=== PATIENT | male | born 1950 | race Caucasian/White ===

== ENCOUNTER → 2020-12-29 08:53 | Outpatient (BNVA) | payer MEDICARE, OTHER, SELFPAY | PROVIDERS: PCP Internal Medicine; Referring Provider Internal Medicine; Visit Provider Urology | DX: Z13.89 Encounter for screening for other disorder (principal) | CPT/HCPCS: Q3014 ==

== ENCOUNTER 2021-12-16 08:14 | Outpatient (REF) | payer MEDICARE, OTHER, SELFPAY ==
--- NOTE | ~2021-12-16 | US_ITS ---
EXAMINATION: US RETROPERITONEAL LIMITED (RENAL ONLY) CLINICAL INFORMATION: Calculus of kidney. COMPARISON: CT abdomen and pelvis 05/06/2018. TECHNIQUE: Real-time imaging of the kidneys. FINDINGS: RIGHT KIDNEY: 13.6 x 6.5 x 6.8 cm (SAG x AP x TRV). The kidney is normal in size, contour, and echogenicity. Renal cortical thickness is normal. No calculi or focal parenchymal lesions. No hydronephrosis. LEFT KIDNEY: 14.2 x 5.8 x 6.6 cm (SAG x AP x TRV). The kidney is normal in size, contour, and echogenicity. Renal cortical thickness is normal. There is a 2 x 1.3 x 1.8 cm cyst exophytic to the lower pole with single thin septation. Suggestive of a Bosniak type II cyst. No renal calculi or hydronephrosis. US/US renal BI IMPRESSION: Left renal cyst. No stone seen.
== END 2021-12-16 08:15 | disposition home or self-care (01) ==
LOC: HO.HMGCX 08:14
PROVIDERS: PCP Internal Medicine; Visit Provider Urology
DX: N20.0 Calculus of kidney (principal)
CPT/HCPCS: 76775

== ENCOUNTER → 2022-03-02 08:55 | Outpatient (BNVA) | payer MEDICARE, OTHER, SELFPAY | PROVIDERS: Visit Provider Urology | DX: N20.0 Calculus of kidney (principal) | CPT/HCPCS: Q3014 ==

== ENCOUNTER 2023-02-12 08:38 | Outpatient (REF) | payer MEDICARE, OTHER, SELFPAY ==
--- NOTE | ~2023-02-12 | US_ITS ---
EXAMINATION: US RETROPERITONEAL LIMITED (RENAL ONLY) CLINICAL INFORMATION: Calculus of kidney. COMPARISON: Ultrasound retroperitoneal limited (renal only) 12/16/2021. TECHNIQUE: Real-time imaging of the kidneys. FINDINGS: RIGHT KIDNEY: 13.6 x 6.7 x 5.9 cm (SAG x AP x TRV). The kidney is normal in size, contour, and echogenicity. Renal cortical thickness is normal. No calculi or focal parenchymal lesions. No hydronephrosis. LEFT KIDNEY: 14.1 x 6.5 x 5.6 cm (SAG x AP x TRV). The kidney is normal in size, contour, and echogenicity. Renal cortical thickness is normal. No renal calculi or hydronephrosis. There is a 1.7 cm simple cyst in the lower pole. No imaging follow-up is recommended. US/US renal BI IMPRESSION: No nephrolithiasis or hydronephrosis.
== END 2023-02-12 08:39 | disposition home or self-care (01) ==
LOC: HO.US 08:38
PROVIDERS: PCP Internal Medicine; Visit Provider Urology
DX: N20.0 Calculus of kidney (principal)
CPT/HCPCS: 76775

== ENCOUNTER → 2023-03-02 10:44 | Outpatient (BNVA) | payer MEDICARE, OTHER, SELFPAY | PROVIDERS: PCP Internal Medicine; Visit Provider Urology | DX: N20.0 Calculus of kidney (principal) | CPT/HCPCS: 99212 ==

== ENCOUNTER 2024-02-15 08:49 | Outpatient (REF) | payer MEDICARE, OTHER, SELFPAY ==
--- NOTE | ~2024-02-15 | US_ITS ---
EXAMINATION: US RETROPERITONEAL LIMITED (RENAL ONLY) CLINICAL INFORMATION: Calculus of kidney. COMPARISON: Renal ultrasound 02/12/2023 and 12/16/2021. CT abdomen and pelvis 05/06/2018 TECHNIQUE: Real-time imaging of the kidneys. FINDINGS: RIGHT KIDNEY: 12.2 x 6.5 x 5.0 cm (SAG x AP x TRV). The kidney is normal in size, contour, and echogenicity. Renal cortical thickness is normal. No calculi or focal parenchymal lesions. No hydronephrosis. LEFT KIDNEY: 14.0 x 5.6 x 5.1 cm (SAG x AP x TRV). The kidney is normal in size, contour, and echogenicity. Renal cortical thickness is normal. No renal calculi or hydronephrosis. There are benign, simple cysts, the largest at the lower pole measuring 1.8 cm. These require no imaging follow-up. US/US renal BI IMPRESSION: Unremarkable examination. No renal calculus or hydronephrosis is seen bilaterally. There is no solid lesion.
== END 2024-02-15 08:50 | disposition home or self-care (01) ==
LOC: HO.US 08:49
PROVIDERS: PCP Internal Medicine; Visit Provider Urology
DX: N20.0 Calculus of kidney (principal)
CPT/HCPCS: 76775

== ENCOUNTER 2024-02-29 10:50 | Outpatient (AMB) | payer MEDICARE, OTHER, SELFPAY ==
--- NOTE | 2024-02-29 10:58 | A.OFFVIS_ITS ---
Intake Visit Reasons: 1y follow up Intake Note: Patient is Present for Follow Up Urology Medication: Vitamin b6 Antibiotic Allergies:None Blood Thinners: Warfarin Allergies No Known Allergies Allergy (Verified 02/29/24 11:01) HPI Comments Details: Colton Salazar is a very pleasant male. He is a patient of Dr Reeves. He is seen for the following urologic conditions - nephrolithiasis Has done well on combination vitamin B6 and allopurinol No evidence of further stone formation Will continue with vitamin B6 50 mg One year follow-up Reviewed abdominal hernia that happened from emergent spine surgery Has lost 20 lb Recommend continue weight loss prior to reassessment with Dr. Merida Nephrolithiasis/Urolithiasis: Current imaging no evidence of stones Small cyst remains left kidney Remain on vitamin B6 and allopurinol They are here for further evaluation of nephrolithiasis - discussed results imaging with no stones. Urolithiasis was diagnosed 04/2018 [facility] [place] with left distal ureteric stone. The patient previously had kidney stones whose composition w 05/22 , uric acid 80%. Laboratory investigations include 05/22 , , Base line serum evaluation, Normocalcemia (9.0), Normal PTH, Normal uric acid. 24 Hour urine evaluation 05/22 , Low Urine volume < 2.0 liters, High Sodium (> 100mEq), Low citrate < 400, Low urine pH < 5.5 - low pH with uric acid stones 11/23 , Good Volume > 2.00 L, High Citrate, High oxalate > 30mg, Hypercalciuria (> 200mg), High Sodium (> 100mEq). Prior treatment(s) include 04/22 , left, ureteroscopy 11/23 , medical management, with potassium citrate. Prior imaging includes 04/22 , a CT (computed tomography) scan of the abdomen/pelvis (stone protocol), showing radiodense stone(s), showing ureteral stone(s), on the left, 5-10 mm 05/22 , a renal ultrasound, showing no evidence of stones 11/23 , a renal ultrasound, showing no evidence of stones 11/24 , a renal ultrasound, showing no evidence of stones 2 cm cyst - 12/26 renal ultrasound no evidence of stones, cyst on left kidney 2 cm - 12/27 renal ultrasound minutes of stones, Bosniak 2 - 2 cm cyst left kidney - 12/28 renal ultrasound 2 cm left kidney Bosniak to no evidence of stones - 01/26 renal ultrasound persistent left cyst no evidence of stones Hydronephrosis mild UA today shows 05/22 high specific gravity suggestive of relative dehydration, < 5.5. 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 Review of Systems Const Denies chills and Denies fever(s) Card Reports no additional complaints and Denies syncope Resp Denies cough GI Denies abdominal pain and Denies heartburn Reports as per HPI and Denies change in libido Neuro Denies syncope Psych Denies change in libido Endo Denies change in libido Physical Exam Const General: cooperative, healthy appearing, comfortable and no acute distress Orientation/consciousness: patient oriented x3 HEENT Face and sinus: Yes normal facial exam Mouth: moist mucous membranes Neck Neck: Yes normal visual inspection, Yes full ROM and Yes trachea midline Chest Chest palpation & inspection: normal inspection of the chest Resp Effort & Inspection: normal respiratory effort, able to speak in complete sentences and no respiratory distress GI Inspection: Yes normal to inspection Back/Spine/Pelvis Cervical Spine: normal cervical lordosis Thoracic/Lumbar Spine: thoracic and lumbar spine normal to inspection Skin General skin exam: no rashes or lesions noted Neuro General: patient oriented x3, gait normal, tone normal and moves all extremities Extrem General: Yes normal to inspection and Yes capillary refill normal Assessment & Plan Assessment & Plan (1) Nephrolithiasis: Code(s): N20.0 - Calculus of kidney Category: Medical Plan Twelve month follow-up renal ultrasound Orders: Orders US renal BI 12 Months N20.0 - Calculus of kidney Patient Instructions: Imaging studies, laboratory and physical exam results were discussed and reviewed in detail. No major barriers to patient understanding were identified. An opportunity to ask questions regarding the treatment plan was provided. All questions were answered. The patient expressed understanding and agreement with the above treatment plan. The patient is aware they should contact our office by phone for worsening of their current condition or the appearance of new urologic symptoms. Compliance is encouraged with any medications and followup testing that is ordered. It is a privilege to participate in the urologic care of your patient. If you have any questions or concerns regarding treatment for the above conditions, or other urologic issues, please do not hesitate to contact me. The office telephone contact is [phone]. This note is constructed using voice recognition software. While every effort has been made to ensure accuracy wellness nurse rn errors may have been included. Yours sincerely, Dr Neil Song MD, [facility] - Urology Providers of Expert, Compassionate Care for the Genitourinary System Coding Level of Care Code Est Pt Level 4 (20130) Diagnoses Nephrolithiasis N20.0
== END 2024-02-29 12:19 | disposition home or self-care (01) ==
PROVIDERS: Visit Provider Urology
DX: N20.0 Calculus of kidney (principal)
CPT/HCPCS: 99213

== ENCOUNTER → 2024-02-29 10:50 | Outpatient (BNVA) | payer MEDICARE, OTHER, SELFPAY | PROVIDERS: Visit Provider Urology | DX: N20.0 Calculus of kidney (principal); N28.1 Cyst of kidney, acquired; Z79.899 Other long term (current) drug therapy | CPT/HCPCS: 99212 ==

== ENCOUNTER 2025-02-16 08:49 | Outpatient (REF) | payer MEDICARE, OTHER, SELFPAY ==
--- NOTE | ~2025-02-16 | US_ITS ---
CLINICAL HISTORY: N20.0 - Calculus of kidney US Renal Comparison: 02/15/2024 Findings: Right kidney normal size and echotexture, 13.9 cm length. Left kidney normal size and echotexture, 14 cm length. No hydronephrosis of either kidney. Normal color Doppler 17 mm exophytic left renal cyst is stable to mildly less conspicuous than prior exam and does not require follow-up imaging/further workup. IMPRESSION: No hydronephrosis. This document has been electronically signed by: Ally Ontiveros MD on 02/16/2025 11:07:33
--- OUTSIDE RECORDS SUMMARY | 2025-02-16 09:33 | XMS_ITS | Clinical Summary ---
Author Organization [facility] [address] [facility] Address [address] [place] [address] Phone Care Team Providers Care Store Receiving Clerk Name Role Phone Richard Chu MD Primary Care Provider [phone] Allergies Active Allergy Reactions Criticality Noted Date Comments Pollen Extracts 01/24/2022 Other reaction(s): watery eyes Medications cholecalcifer ol (VITAMIN D-3) 50 mcg (2,000 unit) capsule Take 1 Capsule by mouth daily. Active loteprednol etabonate (Lotemax SM) 0.38 % drops,gel INSTILL 1 DROP INTO BOTH EYES TWICE A DAY DIRECTED Active warfarin (COUMADIN) 5 mg tablet Take 1 Tablet by mouth See Admin Instructions for 360 days. May cause heavy bleeding. Take at same time every day. Do not change dietary habits. Take 1.5 tablets one to three times weekly as directed by anticoagulation clinic and 1 tab all other days. 024 2024 Active multivitamin with minerals (Multiple Vitamin-Casselman als) tablet Take by mouth. Act brayden thiamine 100 mg tablet Take 1 tablet (100 mg total) by mouth 1 (one) time each day. Active allopurinoL (ZYLOPRIM) 300 mg tablet Take 1 tablet (300 mg total) by mouth 1 (one) time each day. 90 tablet 1 Active atorvastatin (LIPITOR) 20 mg tablet Take 1 tablet (20 mg total) by mouth 1 (one) time each day. 90 tablet 1 Active dilTIAZem CD (CARDIZEM CD) 120 mg 24 hr capsule Take 1 capsule (120 mg total) by mouth 1 (one) time each day. 90 capsule 1 024 Active losartan (COZAAR) 50 mg tablet Take 1 tablet (50 mg total) by mouth 1 (one) time each day. 90 tablet 024 Active omeprazole (PriLOSEC) [address] capsule Take 1 capsule (20 mg total) by mouth 1 (one) time each day. 90 capsule 024 Active folic acid (FOLVITE) 1 mg tablet Take 1 tablet (1,000 mcg total) by mouth 1 (one) time each day. 90 tablet 025 Active pyridoxine (B-6) 100 mg tablet Take 1 tablet (100 mg total) by mouth 1 (one) time each day. 90 tablet 1 025 Active metoprolol succinate (TOPROL-XL) 100 mg 24 hr tablet TAKE 1 TABLET BY MOUTH 1 TIME EACH DAY. 90 tablet 025 Active metoprolol succinate (TOPROL-XL) 100 mg 24 hr tablet Take 1 tablet (100 mg total) by mouth 1 (one) time each day. 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 Overview (09/17/2024): left ear s/p surgical excision Incisional hernia without obstruction or gangren e 03/06/2023 Prediabetes 08/05/2021 Systolic congestive heart fa ilure (CMS/HCC V24, CMS/HCC V28) 09/27/2020 Overview (09/17/2024): S/p TTE 09/2020 nuclear stress pending Large bowel obstruction (CMS/HCC V24, CMS/HCC V2 8) 08/09/2020 Overview (09/17/2024): Unclear etiology head exploratory laparotomy with total abdominal hysterectomy and end colostomy 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 L5 radiculopathy. Inconclusive EMG. Follows with physiatry Thyroid nodule 12/27/2017 Overview (09/17/2024): S/p US with large left lobe nodule 2.7 x 1.7 x 2 cm. S/p FNA 01/2018 benign Obesity (BMI 30-39.9) 12/13/2017 Aortic aneurysm ([facility] V24) 06/26/2017 Overview (09/17/2024): Ascending 4.2 cm, stable on CT chest in 12/2017, TTE 04/2019 stable 4.3 cm PVD (peripheral vascular disease) (CMS/[facility] V24) 05/21/2017 GERD (gastroesophageal reflux disease) 7 Vitamin D deficiency 01/24/2017 Diverticulosis 01/24/2017 Overview (09/17/2024): 08/2011 Tubular adenoma 01/24/2017 Overview (09/17/2024): Colonoscopy 08/25/2011, repeat 5 yrs A-fib (CMS/[facility] V24, CMS/HCC V28) 12/04/2016 Overview (09/17/2024): Non valvular on coumadin, follows with cardiology Encounters Date Type Department Care Team Description 02/06/2025 9:00 AM EDT Anticoagulation - Warfarin Visit [facility] [address] [phone] Atrial fibrillation, unspecified type (CMS/HCC V24, CMS/HCC V28) (Primary Dx); USP (current) use of anticoagulants 01/27/2025 10:00 AM EDT Consult Vascular Surgery - [place] [address] [place] [address] Liliana Ruiz PA Asymptomatic varicose veins of both lower extremities 01/09/2025 8:40 AM EST Anticoagulation - Warfarin Visit Coumadin [address] [phone] Atrial fibrillation, unspecified type (CMS/HCC V24, CMS/HCC V28) (Primary Dx); USP (current) use of anticoagulants 01/01/2025 7:45 AM EST Lab Draw [address] Preop examination; Atrial fibrillation, unspecified type (CMS/HCC V24, CMS/HCC V28); Chronic systolic congestive heart failure (CMS/HCC V24, CMS/HCC V28); Hypercholesteremia; Primary hypertension; 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, unspecified laterality; Gastroesophageal reflux disease without esophagitis; Screening for prostate cancer; Longstanding persistent atrial fibrillation (CMS/HCC V24, CMS/HCC V28); Aneurysm of ascending aorta without rupture (CMS/HCC V24); Transaminitis; Asymptomatic varicose veins of both lower extremities; Screening for diabetes mellitus (DM); Mixed hyperlipidemia; Hypercalcemia 12/31/2024 7:30 AM EST Ancillary Procedure [facility] [address] [phone] Cardiomyopathy, unspecified type (CMS/HCC V24, CMS/HCC V28); Atrial fibrillation, persistent (CMS/HCC V24, CMS/HCC V28) 12/30/2024 10:00 AM EST Consult Adult Medicine [address] [phone] Richard Chu MD Preop examination (Primary Dx); Atrial fibrillation, unspecified type (CMS/HCC V24, CMS/HCC V28); Chronic systolic congestive heart failure (CMS/HCC V24, CMS/HCC V28); Hypercholesteremia; Primary hypertension; 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, unspecified laterality; Gastroesophageal reflux disease without esophagitis; Screening for prostate cancer; Hypercalcemia 12/19/2024 9:00 AM EST Anticoagulation - Warfarin Visit Coumadin [address] [phone] Atrial fibrillation, unspecified type ([facility]/HCC V24, CMS/HCC V28) (Primary Dx); emt intermediate (current) use of anticoagulants 11/21/2024 9:00 AM EST Anticoagulation - Warfarin Visit [address] [phone] Atrial fibrillation, unspecified type (CMS/HCC V24, CMS/HCC V28) (Primary Dx); emt intermediate (current) use of anticoagulants from Last 3 Months Immunizations Name Administration Dates Next Due H1N1 Inj Preservative Free 01/19/2010 Influenza trivalent, 0.5mL ( Fluad) 65yo and older 09/21/2022,08/01/2021,09/24/2019 Influenza trivalent, 0.5mL, preservative free (Fluarix; FluLaval; Fluzone) ages 6mo and older (Afluria) 3 years and older 01/19/2011 Moderna SARS-CoV-2 COVID-19, mRNA, LNP-S, preservative free 10/16/2021 Pfizer SARS-CoV-2 COVID-19, mRNA, LNP-S, preservative free 02/07/2021,01/16/2021 Pneumococcal conjugate 13 va lent (Prevnar 13, PCV13) 2mo and older 02/08/2017 Pneumococcal polysaccharide 23 valent (Pneumovax 23) 2yo and older 06/09/2009 Tdap Tetanus diptheria acell ular pertussis (Boostrix; Adacel) 7yo and older 05/22/2013 Zoster recombinant (Shingrix ) 19yo and older 10/16/2021 Surgical History Surgery Date Site/Laterality Comments TONSILLECTOMY PROCEDURE: HISTORICAL TONSILLECTOMY UPPER GASTROINTESTINAL ENDOSCOPY 01/29/2002 PROCEDURE: MN UPPER GI ENDOSCOPY PERFORMED; COMMENT: GERD, sm reducible hiatal hernia elicited w/ valsava only OTHER SURGICAL HISTORY Right PROCEDURE: MN STAB PHLEBT VARICOSE VEINS 1 XTR 10-20 STAB INCS; COMMENT: in his 20s HAND SURGERY Right PROCEDURE: HISTORICAL HAND SURGERY; COMMENT: 4th finger COLONOSCOPY 08/2011 PROCEDURE: HISTORICAL COLONOSCOPY; COMMENT: L tubular adenoma/polpectomy, repeat 5 yrs COLONOSCOPY W/ POLYPECTOMY 06/13/2017 PROCEDURE: MN COLSC FLX W/RMVL OF TUMOR POLYP LESION SNARE TQ; COMMENT: adenomas; repeat in 5 yrs ABDOMINAL SURGERY 07/06/2021 N/A PROCEDURE: HISTORICAL ABDOMINAL SURGERY; COMMENT: abdominal resection with temporary iliostomy Medical History Medical History Date Comments Hypertension DX:Hypertension Hypercholesteremia DX:Hyperchole steremia GERD (gastroesophageal reflux disease) 01/24/2017 DX:GERD (gastroesophageal reflux disease) Vitamin D deficiency 01/24/2017 DX:Vitamin D deficiency Tubular adenoma 01/24/2017 DX:Tubular adeno ma; COMMENT: Colonoscopy 08/25/2011, repeat 5 yrs Thyroid nodule 12/27/2017 DX:Thyroid nodul e; COMMENT: S/p US with large left lobe nodule 2.7 x 1.7 x 2 cm. S/p FNA 01/2018 benign A-fib (CMS/HCC V24, [facility]/HCC V28) 12/04/2016 DX:A-fib (HCC); COMMENT: Non valvular on coumadin Diverticulosis 01/24/2017 DX:Diverticulosi s; COMMENT: 08/2011 Facial basal cell cancer DX:Faci al basal cell cancer; COMMENT: left ear s/p surgical excision Obesity (BMI 30-39.9) 12/13/2017 DX:Obesity (BMI 30-39.9) PVD (peripheral vascular dis ease) ([facility]/HCC V24) 05/21/2017 DX:PVD (peripheral vascular disease) ([facility]) Paresthesia of both lower extremities 06/19/2018 DX:Paresthesia of both lower extremities; COMMENT: ? L5 radiculopathy. Inconclusive EMG. 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 01/30/2019 DX:Chronic gout due to r enal impairment involving foot without tophus Aortic aneurysm ([facility] V24) 06/26/2017 DX :Aortic aneurysm (HCC); COMMENT: Ascending 4.2 cm, stable on CT chest in 12/2017, TTE 04/2019 stable 4.3 cm Family History Medical History Relation Name Comments Lung cancer Brother 1 Other: Other Daughter Carina Heart attack Father Other: OR, DM Father Other: No medical issues Mother Relation Name Status Comments Brother 1 Brother 2 Alive Daughter Carina Alive rectal cancer t reated with surgery Father Mother Son Alive Social History Tobacco Use Types Packs/Day Years Used Date Smoking Tobacco: Former Cigarettes Q uit: 11/05/2005 Smokeless Tobacco: Never Tobacco Cessation:Counseling Given: Not Answered Alcohol Use Standard Drinks/Week Comments Yes 0 (1 standard drink = 0.6 oz pur e alcohol) Sex and Gender Information Value Date Recorded Sex Assigned at Not on file Legal Sex Male 2:54 AM EST Gender Identity Not on file Sexual Orientation Not on file Obstetrics History Last Filed Vital Signs Vital Sign Reading Time Taken Comments Blood Pressure 115/74 01/27/2025 9:47 AM EDT Pulse 76 01/27/2025 9:47 AM EDT Temperature 36.5 ??C (97.7 ??F) 12/30/2024 9:47 AM ES T Respiratory Rate 18 12/30/2024 9:47 AM EST Oxygen Saturation - - Inhaled Oxygen Concentration - - Weight 130 kg (287 lb) 01/27/2025 9:47 AM EDT Height 190.5 cm (6' 3 ) 01/27/2025 9:47 AM EDT Body Mass Index 35.87 01/27/2025 9:47 AM EDT Plan of Treatment Upcoming Encounters Date Type Department Care Team (Latest Contact Info) Description 03/06/2025 9:00 AM EDT Anticoagulation - Warfarin Visit Coumadin [address] [phone] Health Maintenance Due Date Last Done Comments Hepatitis A Vaccines (1 of 2 - Risk 2-dose series) 1970 RSV Immunization Adult Patients (1 - Risk 60-74 years 1-dose series) 2011 Pneumococcal Vaccine: 50+ Years (3 of 3 - PPSV23, PCV20 or PCV21) 04/05/2017 02/08/2017, 06/09/2009, 06/09/2009 Zoster Vaccines (2 of 2) 12/11/2021 10/16/2021 Medicare Annual Wellness Visit 10/14/2022 Social Influencers of Health Screening 10/14/2022 DTaP,Tdap,and Td Vaccines (2 - Td or Tdap) 05/22/2023 05/22/2013 Depression Screening 06/28/2024 06/28/2023 Falls Risk Assessment 06/28/2024 06/28/2023 COVID-19 Vaccine ( season) 2024 03/23/2022, 10/16/2021, 02/07/2021, Additional history exists Influenza Vaccine (Season Ended) 2025 09/21/2022, 08/01/2021, 09/24/2019, Additional history exists Hypertension/CHF/CAD Annual BMP Blood Test 02/13/2026 02/13/2025, 01/01/2025, 04/16/2024, Additional history exists Colorectal Cancer Screening: Colonoscopy 02/25/2029 02/26/2024 Cholesterol Screening (Lipid Panel) 01/01/2030 01/01/2025, 04/16/2024, 04/16/2024 Hepatitis C Screening Completed 02/08/2017 Abdominal Aortic Aneurysm (AAA) Screen Completed 02/20/2017 HIB Vaccines Aged Out No longer eligi ble based on patient's age to complete this topic HPV Vaccines Aged Out No longer eligi ble based on patient's age to complete this topic Hepatitis B Vaccines Aged Out No long er eligible based on patient's age to complete this topic IPV Vaccines Aged Out No longer eligi ble based on patient's age to complete this topic MMR Vaccines Aged Out No longer eligi ble based on patient's age to complete this topic Meningococcal ACWY Vaccine Aged Out N o longer eligible based on patient's age to complete this topic Meningococcal B Vaccine Aged Out No l onger eligible based on patient's age to complete this topic RSV Immunization Patients Under 20 months Aged Out No longer eligible based on patient's age to complete this topic Varicella Vaccines Aged Out No longer eligible based on patient's age to complete this topic Procedures Procedure Name Priority Date/Time Associated Diagnosis Comments PROTHROMBIN TIME WITH INR Routine 02/13/2025 7:59 AM EDT Atrial fibrillation, unspecified type (CMS/HCC V24, CMS/HCC V28) PVD (peripheral vascular disease) (CMS/HCC V24) USP (current) use of anticoagulants BASIC METABOLIC PANEL Routine 02/13/2025 7:59 AM EDT Hypercalcemia POC PROTIME INR BLOOD Routine 02/06/2025 Atrial fibrillation, unspecified type (CMS/HCC V24, CMS/HCC V28) emt intermediate (current) use of anticoagulants POC PROTIME INR BLOOD Routine 01/09/2025 Atrial fibrillation, unspecified type (CMS/HCC V24, CMS/HCC V28) USP (current) use of anticoagulants VITAMIN D 25 HYDROXY Routine 01/01/2025 7:53 AM EST Hypercalcemia PARATHYROID HORMONE INTACT Routine 01/01/2025 7:53 AM EST Hypercalcemia CBC WITH AUTO DIFFERENTIAL Routine 01/01/2025 7:53 AM EST Preop examination Atrial fibrillation, unspecified type (CMS/HCC V24, CMS/HCC V28) Chronic systolic congestive heart failure (CMS/HCC V24, CMS/HCC V28) Hypercholesteremia Primary hypertension 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, unspecified laterality Gastroesophageal reflux disease without esophagitis URIC ACID Routine 01/01/2025 7:53 AM EST Preop examination Atrial fibrillation, unspecified type (CMS/HCC V24, CMS/HCC V28) Chronic systolic congestive heart failure (CMS/HCC V24, CMS/HCC V28) Hypercholesteremia Primary hypertension 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, unspecified laterality Gastroesophageal reflux disease without esophagitis CBC AND DIFFERENTIAL Routine 01/01/2025 7:53 AM EST Preop examination Atrial fibrillation, unspecified type (CMS/HCC V24, CMS/HCC V28) Chronic systolic congestive heart failure (CMS/HCC V24, CMS/HCC V28) Hypercholesteremia Primary hypertension 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, unspecified laterality Gastroesophageal reflux disease without esophagitis COMPREHENSIVE METABOLIC PANEL Routine 01/01/2025 7:53 AM EST Preop examination Atrial fibrillation, unspecified type (CMS/HCC V24, CMS/HCC V28) Chronic systolic congestive heart failure (CMS/HCC V24, CMS/HCC V28) Hypercholesteremia Primary hypertension 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, unspecified laterality Gastroesophageal reflux disease without esophagitis PROSTATE SPECIFIC ANTIGEN SCREEN Routine 01/01/2025 7:53 AM EST Screening for prostate cancer LIPID PANEL WITH REFLEX TO DIRECT LDL Routine 01/01/2025 7:53 AM EST Preop examination Atrial fibrillation, unspecified type (CMS/HCC V24, CMS/HCC V28) Chronic systolic congestive heart failure (CMS/HCC V24, CMS/HCC V28) Hypercholesteremia Primary hypertension 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, unspecified laterality Gastroesophageal reflux disease without esophagitis HEMOGLOBIN A1C Routine 01/01/2025 7:53 AM EST Preop examination Atrial fibrillation, unspecified type (CMS/HCC V24, CMS/HCC V28) Chronic systolic congestive heart failure (CMS/HCC V24, CMS/HCC V28) Hypercholesteremia Primary hypertension 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, unspecified laterality Gastroesophageal reflux disease without esophagitis TRANSTHORACIC ECHOCARDIOGRAM (TTE) COMPLETE W/ CONTRAST Routine 12/31/2024 8:00 AM EST Cardiomyopathy, unspecified type (CMS/HCC V24, CMS/HCC V28) Atrial fibrillation, persistent (CMS/HCC V24, CMS/HCC V28) PROTHROMBIN TIME WITH INR Routine 12/24/2024 7:58 AM EST Atrial fibrillation, unspecified type (CMS/HCC V24, CMS/HCC V28) PVD (peripheral vascular disease) (CMS/HCC V24) USP (current) use of anticoagulants POC PROTIME INR BLOOD Routine 12/19/2024 Atrial fibrillation, unspecified type (CMS/HCC V24, CMS/HCC V28) USP (current) use of anticoagulants POC PROTIME INR BLOOD Routine 11/21/2024 Atrial fibrillation, unspecified type (CMS/HCC V24, CMS/HCC V28) USP (current) use of anticoagulants HM COLONOSCOPY Routine 02/26/2024 DEPRESSION SCREENING Routine 06/28/2023 FALLS RISK ASSESSMENT Routine 06/28/2023 ABDOMINAL AORTIC ANEURYSM SCRREN Routine 02/20/2017 HEPATITIS C SCREENING Routine 02/08/2017 from Last 3 Months or Most Recently Relevant to Health Maintenance Results * (ABNORMAL) Prothrombin time with INR (02/13/2025 7:59 AM EDT) Only the most recent of2 resultswithin the time period is included. Protime 33.0(H) 10.6 - 13.9 sec LAB COAGULATION METHOD 02/13/2025 10:45 AM EDT [facility] INR 2.7 LAB COAGULATION METHOD 02/13/2025 10:45 AM EDT [facility] Blood Venous blood specimen / Unknown Venipuncture / Unknown 02/13/2025 7:59 AM EDT 02/13/2025 7:59 AM EDT Richard Chu MD LAB BLOOD ORDERABLES Final Result [facility] [address] [place] [address], * (ABNORMAL) Basic metabolic panel (02/13/2025 7:59 AM EDT) Sodium 142 133 - 145 mmol/L LAB CHEMISTRY METHOD 02/13/2025 10:53 AM EDT [facility] Potassium 4.4 3.5 - 5.5 mmol/L LAB CHEMISTRY METHOD 02/13/2025 10:53 AM EDT [facility] Chloride 106 96 - 110 mmol/L LAB CHEMISTRY METHOD 02/13/2025 10:53 AM EDT [facility] CO2 30 21 - 32 mmol/L LAB CHEMISTRY METHOD 02/13/2025 10:53 AM [facility] Anion Gap 6 3 - 11 LAB CHEMISTRY METHOD 02/13/2025 10:53 AM [facility] Glucose 105(H) 70 - 100 mg/dL LAB CHEMISTRY METHOD 02/13/2025 10:53 AM [facility] BUN 20 5 - 25 mg/dL LAB CHEMISTRY METHOD 02/13/2025 10:53 AM [facility] Creatinine 1.07 0.70 - 1.30 mg/dL LAB CHEMISTRY METHOD 02/13/2025 10:53 AM [facility] eGFR 73 >=60 mL/min/1. 73m2 LAB CHEMISTRY METHOD 02/13/2025 10:53 AM [facility] Comment:Calculation based on the??Chronic Kidney Disease Epidemiology Collaboration (CKD-EPI) equation refit??without adjustment for race. BUN/Creatinine Ratio 18.7 LAB CHEMISTRY METHOD 02/13/2025 10:53 AM [facility] Calcium 9.8 8.5 - 10.5 mg/dL LAB CHEMISTRY METHOD 02/13/2025 10:53 AM [facility] Blood Venous blood specimen / Unknown Venipuncture / Unknown 02/13/2025 7:59 AM EDT 02/13/2025 7:59 AM EDT us Richard Chu MD LAB BLOOD ORDERABLES Final Result [facility] [address] [place] [address], * POC Protime INR Blood (02/06/2025) Only the most recent of4 resultswithin the time period is included. Lot Number INR POC 3.1 Prothrombin Time POC Exp Date Blood 02/06/2025 Richard Chu MD POINT OF CARE TEST ENTER/ED IT ORDERABLES Final Result * Prostate specific antigen screen (01/01/2025 7:53 AM EST) Pathologist [facility] PSA 0.86 0.00 - 4.00 ng/mL LAB CHEMISTRY METHOD 01/01/2025 2:13 PM EST [facility] Blood Venous blood specimen / Unknown Venipuncture / Unknown 01/01/2025 7:53 AM EST 01/01/2025 7:53 AM EST Narrative [facility] - 01/01/2025 2:13 PM EST The Siemens Advia fitaborateaur Chemiluminescent Immunoassay is used. Results obtained with different assay methods or kits cannot be used interchangeably. Results cannot be interpreted as absolute evidence of the presence or absence of malignant disease. Richard Chu MD LAB BLOOD ORDERABLES Final Result [facility] [address] [place] [address], [place] [phone] * Lipid panel with reflex to direct LDL (01/01/2025 7:53 AM EST) Pathologist [facility] Cholesterol 122 0 - 200 mg/dL LAB CHEMISTRY METHOD 01/01/2025 10:59 AM [facility] Triglycerides 140 0 - 150 mg/dL LAB CHEMISTRY METHOD 01/01/2025 10:59 AM EST [facility] HDL 49 >=40 mg/dL LAB CHEMISTRY METHOD 01/01/2025 10:59 AM [facility] LDL Calculated 45 0 - 100 mg/dL LAB CHEMISTRY METHOD 01/01/2025 10:59 AM [facility] VLDL Cholesterol Carmine 28 mg/dL LAB CHEMISTRY METHOD 01/01/2025 10:59 AM [facility] Non HDL Chol. (LDL+VLDL) 73 <145 mg/dL LAB CHEMISTRY METHOD 01/01/2025 10:59 AM [facility] Chol/HDL Ratio 2.5 0.0 - 4.4 LAB CHEMISTRY METHOD 01/01/2025 10:59 AM [facility] Blood Venous blood specimen / Unknown Venipuncture / Unknown 01/01/2025 7:53 AM EST 01/01/2025 7:53 AM EST us Richard Chu MD LAB BLOOD ORDERABLES Final Result [facility] [address] [place] [address], * (ABNORMAL) CBC auto differential (01/01/2025 7:53 AM EST) WBC 9.5 4.8 - 10.8 K/mcL LAB HEMETOLOGY METHOD 01/01/2025 10:18 AM [facility] RBC 4.50 4.50 - 5.50 M/[facility] LAB HEMETOLOGY METHOD 01/01/2025 10:18 AM [facility] Hemoglobin 14.3 13.5 - 17.5 g/dL LAB HEMETOLOGY METHOD 01/01/2025 10:18 AM [facility] Hematocrit 43.7 42.0 - 54.0 % LAB HEMETOLOGY METHOD 01/01/2025 10:18 AM [facility] MCV 97.1 79.0 - 98.0 FL LAB HEMETOLOGY METHOD 01/01/2025 10:18 AM [facility] MCH 31.8 27.0 - 32.0 pcg LAB HEMETOLOGY METHOD 01/01/2025 10:18 AM [facility] MCHC 32.7 32.0 - 37.0 g/dL LAB HEMETOLOGY METHOD 01/01/2025 10:18 AM [facility] RDW 12.9 11.0 - 15.0 % LAB HEMETOLOGY METHOD 01/01/2025 10:18 AM [facility] Platelets 245 130 - 400 K/mcL LAB HEMETOLOGY METHOD 01/01/2025 10:18 AM [facility] MPV 11.6(H) 7.0 - 11.0 FL LAB HEMETOLOGY METHOD 01/01/2025 10:18 AM [facility] NRBC 0.0 <1.0 % LAB HEMETOLOGY METHOD 01/01/2025 10:18 AM [facility] NRBC Absolute 0.00 <0.10 K/mcL LAB HEMETOLOGY METHOD 01/01/2025 10:18 AM [facility] Neutrophils Relative 62.6 % LAB HEMETOLOGY METHOD 01/01/2025 10:18 AM [facility] Lymphocytes Relative 26.1 % LAB HEMETOLOGY METHOD 01/01/2025 10:18 AM [facility] Monocytes Relative 8.1 % LAB HEMETOLOGY METHOD 01/01/2025 10:18 AM [facility] Eosinophils Relative 2.3 % LAB HEMETOLOGY METHOD 01/01/2025 10:18 AM [facility] Basophils Relative 0.6 % LAB HEMETOLOGY METHOD 01/01/2025 10:18 AM [facility] Immature Granulocytes Relative 0.3 % LAB HEMETOLOGY METHOD 01/01/2025 10:18 AM [facility] Neutrophils Absolute 5.92 1.50 - 7.00 K/mcL LAB HEMETOLOGY METHOD 01/01/2025 10:18 AM [facility] Lymphocytes Absolute 2.47 1.00 - 5.00 K/mcL LAB HEMETOLOGY METHOD 01/01/2025 10:18 AM [facility] Monocytes Absolute 0.77 0.20 - 1.00 K/mcL LAB HEMETOLOGY METHOD 01/01/2025 10:18 AM EST [facility] Eosinophils Absolute 0.22 0.00 - 0.50 K/[facility] LAB HEMETOLOGY METHOD 01/01/2025 10:18 AM EST [facility] Basophils Absolute 0.06 0.00 - 0.20 K/mcL LAB HEMETOLOGY METHOD 01/01/2025 10:18 AM EST [facility] Immature Granulocytes Absolute 0.03 0.00 - 0.03 [facility] LAB HEMETOLOGY METHOD 01/01/2025 10:18 AM [facility] Blood Venous blood specimen / Unknown Venipuncture / Unknown 01/01/2025 7:53 AM EST 01/01/2025 7:53 AM EST Richard Chu MD LAB BLOOD ORDERABLES Final Result [facility] [address] [place] [address], [place] [phone] * Vitamin D 25 hydroxy (01/01/2025 7:53 AM EST) [facility] Vit D, 25-Hydroxy 45.8 30.0 - 80.0 ng/mL LAB CHEMISTRY METHOD 01/02/2025 9:14 AM EST [facility] Blood Venous blood specimen / Unknown Venipuncture / Unknown 01/01/2025 7:53 AM EST 01/01/2025 7:53 AM EST Richard Chu MD LAB BLOOD ORDERABLES Final Result [facility] [address] [place] [address], [place] [phone] * Uric acid (01/01/2025 7:53 AM EST) [facility] Uric Acid 5.5 3.7 - 9.2 mg/dL LAB CHEMISTRY METHOD 01/01/2025 10:35 AM EST [facility] Blood Venous blood specimen / Unknown Venipuncture / Unknown 01/01/2025 7:53 AM EST 01/01/2025 7:53 AM EST Richard Chu MD LAB BLOOD ORDERABLES Final Result [facility] [address] [place] [address], [place] [phone] * Parathyroid hormone intact (01/01/2025 7:53 AM EST) PTH 53.2 18.5 - 88.0 pcg/mL LAB CHEMISTRY METHOD 01/02/2025 9:15 AM EST [facility] Blood Venous blood specimen / Unknown Venipuncture / Unknown 01/01/2025 7:53 AM EST 01/01/2025 7:53 AM EST Richard Chu MD LAB BLOOD ORDERABLES Final Result [facility] [address] [place] [address], [place] [phone] * Hemoglobin A1c (01/01/2025 7:53 AM EST) Hemoglobin A1C 5.8 <6.5 % LAB CHEMISTRY METHOD 01/01/2025 1:29 PM EST [facility] Mean Bld Glu Estim. 120 mg/dL LAB CHEMISTRY METHOD 01/01/2025 1:29 PM EST [facility] Blood Venous blood specimen / Unknown Venipuncture / Unknown 01/01/2025 7:53 AM EST 01/01/2025 7:53 AM EST Richard Chu MD LAB BLOOD ORDERABLES Final Result [facility] [address] [place] [address], * (ABNORMAL) Comprehensive metabolic panel (01/01/2025 7:53 AM EST) Sodium 138 133 - 145 mmol/L LAB CHEMISTRY METHOD 01/01/2025 10:59 AM EST [facility] Potassium 4.4 3.5 - 5.5 mmol/L LAB CHEMISTRY METHOD 01/01/2025 10:59 AM [facility] Chloride 104 96 - 110 mmol/L LAB CHEMISTRY METHOD 01/01/2025 10:59 AM [facility] CO2 30 21 - 32 mmol/L LAB CHEMISTRY METHOD 01/01/2025 10:59 AM [facility] Anion Gap 4 3 - 11 LAB CHEMISTRY METHOD 01/01/2025 10:59 AM [facility] Glucose 113(H) 70 - 100 mg/dL LAB CHEMISTRY METHOD 01/01/2025 10:59 AM [facility] BUN 16 5 - 25 mg/dL LAB CHEMISTRY METHOD 01/01/2025 10:59 AM [facility] Creatinine 1.07 0.70 - 1.30 mg/dL LAB CHEMISTRY METHOD 01/01/2025 10:59 AM [facility] eGFR 73 >=60 mL/min/1. 73m2 LAB CHEMISTRY METHOD 01/01/2025 10:59 AM [facility] Comment:Calculation based on the??Chronic Kidney Disease Epidemiology Collaboration (CKD-EPI) equation refit??without adjustment for race. BUN/Creatinine Ratio 15.0 LAB CHEMISTRY METHOD 01/01/2025 10:59 AM [facility] Calcium 11.0(H) 8.5 - 10.5 mg/dL LAB CHEMISTRY METHOD 01/01/2025 10:59 AM [facility] AST (SGOT) 25 10 - 42 unit/L LAB CHEMISTRY METHOD 01/01/2025 10:59 AM [facility] ALT (SGPT) 46 10 - 60 unit/L LAB CHEMISTRY METHOD 01/01/2025 10:59 AM [facility] Alkaline Phosphatase 77 42 - 121 unit/L LAB CHEMISTRY METHOD 01/01/2025 10:59 AM [facility] Total Protein 7.6 6.0 - 8.0 g/dL LAB CHEMISTRY METHOD 01/01/2025 10:59 AM EST [facility] Albumin 4.3 3.2 - 5.0 g/dL LAB CHEMISTRY METHOD 01/01/2025 10:59 AM [facility] Total Bilirubin 0.9 0.0 - 1.4 mg/dL LAB CHEMISTRY METHOD 01/01/2025 10:59 AM [facility] Blood Venous blood specimen / Unknown Venipuncture / Unknown 01/01/2025 7:53 AM EST 01/01/2025 7:53 AM EST us Richard Chu MD LAB BLOOD ORDERABLES Final Result [facility] [address] [place] [address], [place] [phone] * (ABNORMAL) TRANSTHORACIC ECHOCARDIOGRAM (TTE) COMPLETE W/ CONTRAST (12/31/2024 8:00 AM EST) Left Atrium Minor [place] 7.2 cm CV PACS Left Atrium Major [place] 6.7 cm CV PACS LA Area Sys (A2C) 31 cm2 CV PACS LA Area Sys (A4C) 26 cm2 CV PACS LA Volume (BP) 96 mL CV PACS RA Area 27.7 cm2 CV PACS RA 2D Volume 97 mL CV PACS Aortic Sinus Valsalva 4.0 cm CV PACS Ascending Aorta 4.4 cm CV PACS IVSD 0.9 0.6 - 1.0 cm CV PACS LVIDD 5.6 4.2 - 5.8 cm CV PACS LVIDS 3.9 2.5 - 4.0 cm CV PACS LVOT Diameter 2.4 cm CV PACS LVPWD 0.9 0.6 - 1.0 cm CV PACS MV E' Tissue Velocity Lateral 11 cm/s CV PACS MV E' Tissue Velocity Septal 9 cm/s CV PACS LVOT Area 4.5 cm2 CV PACS E Wave Deceleration Time 162 119 - 242 ms CV PACS MV Peak E Venu 0.90 m/s CV PACS RV Diastolic Basal Dimension 4.4(A) 2.5 - 4.1 cm CV PACS RV S' 12 cm/s CV PACS TAPSE 19 mm CV PACS TR Peak Velocity 2.00 m/s CV PACS TR Peak Gradient 16 mmHg CV PACS E/E' Ratio Septal 10 CV PACS E/E' Ratio Averaged 9 CV PACS Relative Wall Thickness ratio 0.34 0.24 - 0.42 CV PACS FS 30 % CV PACS LV Mass 2D 200 96 - 200 g CV PACS Ascending Aorta Index 1.71 cm/m2 CV PACS RA 2D Volume Index 38 18 - 32 mL/m2 CV PACS LVIDD Index 2.18 cm/m2 CV PACS LVIDS Index 1.52 cm/m2 CV PACS E/E' Ratio Lateral 8 CV PACS LA Volume Index (BP) 36 mL/m2 CV PACS LV Mass Index 2D 75 50 - 102 g/m2 CV PACS BSA 2.64 m2 CV PACS RV Free Wall Peak S' 12 cm/s CV PACS RA Major [place] 6.4 cm CV PACS RA Major [place] Index 2.5 2.1 - 2.7 cm/m2 CV PACS MV PHT 47 ms CV PACS Anatomical Region Laterality Modality Ultrasound Narrative 01/01/2025 3:34 PM EST ?Left ventricle cavity size is normal. Left ventricular systolic function is low normal with an ejection fraction of 50-55%. ?No regional LV wall motion abnormalities noted. ?Left ventricle wall thickness is normal. ?Right ventricle cavity is mildly enlarged. Right ventricular systolic function is normal. ?Tricuspid valve leaflets exhibit normal excursion. ?The Sinus of Valsalva is dilated (4.0 cm). The ascending aorta is dilated (4.4 cm). ?Compared to prior echo aorta appears similar in size. Left Ventricle Left ventricle cavity size is normal. Wall thickness is normal. Systolic function is low normal with an ejection fraction of 50-55%. There are no regional LV wall motion abnormalities. Unable to assess diastolic function due to atrial fibrillation. Right Ventricle Right ventricle cavity is mildly dilated. Systolic function is normal. Left Atrium Left atrium cavity is mildly dilated. Right Atrium Right atrium cavity is mildly dilated. IVC/SVC Inferior vena cava structure is normal. Mitral Valve Mitral valve structure is normal. There is annular calcification. There is no regurgitation or stenosis. Tricuspid Valve The leaflets exhibit normal excursion. There is trace regurgitation. The right ventricular systolic pressure is normal. Aortic Valve The aortic valve is trileaflet. There is no regurgitation or stenosis. Pulmonic Valve Visualized portions of the pulmonic valve appear normal. There is trace pulmonic valve regurgitation. Ascending Aorta The Sinus of Valsalva is (4.2 cm). The ascending aorta is (4.4 cm). Pericardium There is no pericardial effusion. Study Details Overall the study quality was technically difficult. Definity contrast was given to enhance imaging. Study was difficult due to: poor endocardial visualization and patient body habitus. Result [facility] Bridger Fernandes MD CV ECHO PROCEDURES Final Result * Colonoscopy (02/26/2024) [facility] Colonoscopy No interpretation , abstracted Anatomical Region Laterality Modality Other Result [facility] Final Result * Falls Risk Assessment (06/28/2023) [facility] Falls Risk Assessment Abstracted Result [facility] Final Result * Depression Screening (06/28/2023) [facility] Depression Screening Abstracted Result [facility] Final Result * Abdominal Aortic Aneurysm Screen (02/20/2017) [facility] Abdominal Aortic Aneurysm (AAA) Screening Abstracted Anatomical Region Laterality Modality Other Result [facility] Final Result * Hepatitis C Screening (02/08/2017) Hepatitis C Screening Abstracted us Historical Provider HEALTH MAINTENANCE Final Result from Last 3 Months or Most Recently Relevant to Health Maintenance Insurance MEDICARE [facility] Care Teams Store Receiving Clerk Relationship Specialty Start Date End Date Richard Chu MD [address] [place] [address] PCP - General Internal Medicine 04/11/22
== END 2025-02-16 08:50 | disposition home or self-care (01) ==
LOC: HO.HMGCX 08:49
PROVIDERS: PCP Internal Medicine; Visit Provider Urology
DX: N20.0 Calculus of kidney (principal)
CPT/HCPCS: 76775

== ENCOUNTER → 2025-02-16 08:51 | Outpatient (BNV) | payer MEDICARE, OTHER, SELFPAY | PROVIDERS: PCP Internal Medicine; Visit Provider Radiology Diagnostic Radiology | DX: N28.1 Cyst of kidney, acquired (principal) | CPT/HCPCS: 76775 ==

== ENCOUNTER 2025-02-27 13:33 | Outpatient (AMB) | payer MEDICARE, OTHER, SELFPAY ==
--- NOTE | 2025-02-27 13:33 | A.OFFVIS_ITS ---
Intake Visit Reasons: 1y/US Intake Note: Patient is Present for 1Y Follow Up/US Urology Medication: Vitamin b6,ALLOPURINOL,VITAMIN B1 Antibiotic Allergies:None Blood Thinners: Warfarin Rotating Equipment Specialist Required: No Allergies No Known Allergies Allergy (Verified 02/27/25 13:34) HPI Comments Details: Colton Salazar is a very pleasant male. He is a patient of Dr Reeves. He is seen for the following urologic conditions - nephrolithiasis Telemedicine Evaluation 15 min Consultation [employer] [place] Video One year follow-up Ultrasound negative Reviewed abdominal hernia that happened from emergent spine surgery Has lost 20 lb Recommend continue weight loss prior to reassessment with Dr. Merida Nephrolithiasis/Urolithiasis: Current imaging no evidence of stones Small cyst remains left kidney Remain on vitamin B6 and allopurinol They are here for further evaluation of nephrolithiasis - discussed results imaging with no stones. Urolithiasis was diagnosed 04/2018 [facility] with left distal ureteric stone. The patient previously had kidney stones whose composition w 05/22 , uric acid 80%. Laboratory investigations include 05/22 , , Base line serum evaluation, Normocalcemia (9.0), Normal PTH, Normal uric acid. 24 Hour urine evaluation 05/22 , Low Urine volume < 2.0 liters, High Sodium (> 100mEq), Low citrate < 400, Low urine pH < 5.5 - low pH with uric acid stones 11/23 , Good Volume > 2.00 L, High Citrate, High oxalate > 30mg, Hypercalciuria (> 200mg), High Sodium (> 100mEq). Prior treatment(s) include 04/22 , left, ureteroscopy 11/23 , medical management, with potassium citrate. Prior imaging includes 04/22 , a CT (computed tomography) scan of the a bdomen/pelvis (stone protocol), showing radiodense stone(s), showing ureteral stone(s), on the left, 5-10 mm 05/22 , a renal ultrasound, showing no evidence of stones 11/23 , a renal ultrasound, showing no evidence of stones 11/24 , a renal ultrasound, showing no evidence of stones 2 cm cyst - 12/26 renal ultrasound no evidence of stones, cyst on left kidney 2 cm - 12/27 renal ultrasound minutes of stones, Bosniak 2 - 2 cm cyst left kidney - 12/28 renal ultrasound 2 cm left kidney Bosniak to no evidence of stones - 01/26 renal ultrasound persistent left cyst no evidence of stones - 02/27 renal ultrasound no stones Hydronephrosis mild UA today shows 7 high specific gravity suggestive of relative dehydration, < 5.5. 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 Telehealth Telehealth Telehealth Platform: [employer] Location of provider rendering services: practice address Location of patient: address on file Patient Identification confirmed using: Name, : Yes Telehealth method: video Patient verbally consented to treatment: Yes Patient verbally consented to billing insurance company: Yes Patient informed of any privacy concerns related to visit: Yes Minutes spent on Phone/Video with Pt.: 15 Assessment & Plan Assessment & Plan (1) Nephrolithiasis: Code(s): N20.0 - Calculus of kidney Category: Medical Plan Continue medication Imaging 12 month Orders: Orders US renal BI 12 Months N20.0 - Calculus of kidney Medications: Changed From thiamine mononitrate (vit B1) 100 mg PO DAILY To thiamine mononitrate (vit B1) 100 mg PO DAILY 90 tabs 3RF 90 days Refilled 2 pyridoxine (vitamin B6) 50 mg PO DAILY 90 tabs 3RF 90 days N20.0 - Calculus of kidney allopurinol 300 mg PO DAILY 90 tabs 3RF 90 days N20.0 - Calculus of kidney Patient Instructions: This note is constructed using voice recognition software. While every effort has been made to ensure accuracy pipe smoking machine offbearer errors may have been included. Imaging studies, laboratory and physical exam results were discussed and reviewed in detail. No major barriers to patient understanding were identified. An opportunity to ask questions regarding the treatment plan was provided. All questions were answered. The patient expressed understanding and agreement with the above treatment plan. The patient is aware they should contact our office by phone for worsening of their current condition or the appearance of new urologic symptoms. Compliance is encouraged with any medications and followup testing that is ordered. It is a privilege to participate in the urologic care of your patient. If you have any questions or concerns regarding treatment for the above conditions, or other urologic issues, please do not hesitate to contact me. The office telephone contact is [phone]. Sincerely, Dr Neil Song MD, [facility] - Urology Compassionate Specialist Care for the Genitourinary System Coding Level of Care Code Tele Est Pt Level 4 (29660) Complex EM visit Add On G2211 Diagnoses Nephrolithiasis N20.0
--- OUTSIDE RECORDS SUMMARY | 2025-02-27 14:15 | XMS_ITS | Patient Health Record ---
Author Organization [facility] Address [address] [place] [address] Care Team Providers Care Electrical Designer Drafter Name Role Phone Olman Vazquez Primary Care Provider Unavailabl e Allergies No Known Allergies Reason For Referral No Information Medications Medication SIG (Take, Route, Frequency, Duration) Notes Start Date End Date Status Folic Acid 1 MG 1 tablet Orally Once a day Active Thiamine HCl 100 MG 1 tablet Orally Once a day Active Centrum Silver 50+Men - as directed Orally Active Doxycycline Monohydrate 100 MG 1 tablet Orally Twice a day for 5 days 12/27/2021 Not-Taking PriLOSEC OTC 20 MG 1 tablet 30 minutes before morning meal Orally Once a day Active Lotemax SM 0.38 % 1 drop into the lowe r eyelid of affected eye Ophthalmic twice a day Active Warfarin Sodium 5 MG 1 tablet Orally Onc e a day Active Lipitor 40 MG 1 tablet Orally Once a day Active Vitamin B6 50 MG 1 tablet Orally Active Cardizem CD 240 MG 1 capsule Orally Onc e a day Active Metoprolol Tartrate 100 MG 1 tablet with food Orally daily Active Lidocaine-Prilocaine 2.5-2.5 % apply to the left big toe Externally twice daily PRN pain for 30 days Active Allopurinol 300 MG 1 tablet Orally Once a day Active Problems Problem Type SNOMED Code ICD Code Onset Dates Problem Status W/U Status Risk Notes Problem [id number] Neuritis of left foot (G57.92) Active confirmed Plan Of Treatment No Information Insurance Providers Payer Name Payer Address Payer Phone Subscriber Number Group Number Insured Name Patient Relationship to Insured Coverage Start Date Coverage End Date Medicare of [place] [address] [place] [phone] [id number] Colton Salazar Self - patient is the insured [facility] [place] [address] [facility] [place] [phone] [id number] Colton Salazar Self - patient is the insured Medical (General) History Medical History History ICD Code systolic congestive heart failure S/P TT E 09/2020 nuclear stress pending alcoholism/ alcohol abuse large bowel obstruction- unc lear etiology had exploratory laparotomy with total abdominal hysterectomy and end colostomy history of nephrolithiasis- follows with urology chronic gout due to renal impairment inv olving foot without tophus paresthesia of both lower ex tremities ? L5 radiculopathy, inconclusive EMG follows with physiatry thyroid nodule- S/P US with large left lobe nodule 2.7X 1.7X 2cm. 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 S/P s urgical excision PVD (peripheral vascular disease) GERD (gastroesophageal reflux disease) vitamin D deficiency Diverticulosis (08/2011) tubular adenoma- colonoscopy 08/25/2011, repeat 5 years A-fib- non valvular on Coumadin, follows cardiology hypertension hypercholesteremia chronic eczema rash right hand Surgical History Surgery Date(Month/Year) fracture spine 07/15/2020 large bowel obstruction had exploratory laparotomy with total abdominal hysterectomy and end colostomy 04/2021 facial basal cell cancer- left ear S/P e xcision Hospitalization History Reason Date(Month/Year) large bowel obstruction 04/2021 admitted to the hospital pre sented with back pain and was found to have a compression fracture had delirium that was thought to be possible to infection versus alcohol withdrawal hospitalized 07/15/2020- 08/03/2020
--- OUTSIDE RECORDS SUMMARY | 2025-02-27 14:15 | XMS_ITS | Clinical Summary ---
Author Organization [facility] Address [address] [place] [address] Phone Care Team Providers Care Underwater Welder Name Role Phone iRchard Chu MD Primary Care Provider Allergies Active Allergy Reactions Criticality Noted Date [...] 024 2024 Active multivitamin with minerals (Multiple Vitamin-Hoven als) tablet Take by mouth. Act brayden [...] Problem Noted Date Diagnosed Date Atrial fibrillation ([facility] V24, CMS/HCC V28) 1 12/03/2023 FPC (current) use of anticoagulants 2023 Transaminitis 09/24/2024 [...] benign Obesity (BMI 30-39.9) 12/13/2017 Aortic aneurysm ([facility] V24) 06/26/2017 Overview (09/17/2024): Ascending 4.[address], [address] chest in 12/2017, TTE 04/2019 stable 4.3 cm PVD (peripheral vascular disease) ([facility] V24) 05/21/2017 GERD (gastroesophageal reflux disease) 7 Vitamin D deficiency 01/24/2017 Diverticulosis 01/24/2017 Overview (09/17/2024): 08/2011 Tubular adenoma 01/24/2017 Overview (09/17/2024): Colonoscopy 08/25/2011, repeat 5 yrs A-fib ([facility] V24, [facility]/HCC V28) 12/04/2016 Overview (09/17/2024): Non valvular on coumadin, follows with cardiology Encounters Date Type Department Care Team Description 02/19/2025 Telephone Adult Medicine [place] - [address] [phone] Richard Chu MD Results 02/13/2025 7:50 AM EDT Lab Draw Station - [address] Hypercalcemia; Atrial fibrillation, unspecified type ([facility]/HCC V24, CMS/HCC V28); PVD (peripheral vascular disease) (CMS/HCC V24); FPC (current) use of anticoagulants 02/06/2025 9:00 AM EDT Anticoagulation - Warfarin Visit Coumadin [address] [phone] Atrial fibrillation, unspecified type (CMS/HCC V24, CMS/HCC V28) (Primary Dx); roasterman (current) use of anticoagulants 01/27/2025 10:00 AM EDT Consult Vascular Surgery - [place] [address] [facility] [address] [place] [phone] Liliana Ruiz PA Asymptomatic varicose veins of both lower extremities 01/09/2025 8:40 AM EST Anticoagulation - Warfarin Visit Coumadin [address] [phone] Atrial fibrillation, unspecified type (CMS/HCC V24, CMS/HCC V28) (Primary Dx); FPC (current) use of anticoagulants 01/01/2025 7:45 AM EST Lab Draw Station [address] Preop examination; Atrial fibrillation, unspecified type [...] Hypercalcemia 12/31/2024 7:30 AM EST Ancillary Procedure [facility] [address] [facility] [address] [place] [phone] Cardiomyopathy, unspecified type (CMS/HCC V24, CMS/HCC V28); Atrial fibrillation, persistent (CMS/HCC V24, CMS/HCC V28) 12/30/2024 10:00 AM EST Consult Adult Medicine [address] [phone] Richard Chu MD Preop examination (Primary Dx); Atrial fibrillation, unspecified type (CMS/HCC V24, CMS/HCC V28); Chronic systolic congestive heart failure (CMS/HCC V24, CMS/HCC V28); Hypercholesteremia; Primary hypertension; 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, unspecified laterality; Gastroesophageal reflux disease without esophagitis; Screening for prostate cancer; Hypercalcemia 12/19/2024 9:00 AM EST Anticoagulation - Warfarin Visit Coumadin [address] [phone] Atrial fibrillation, unspecified type (CMS/HCC V24, CMS/[facility] V28) (Primary Dx); roasterman (current) use of anticoagulants from Last 3 [...] HISTORICAL TONSILLECTOMY UPPER GASTROINTESTINAL ENDOSCOPY 01/29/2002 PROCEDURE: MI UPPER GI ENDOSCOPY PERFORMED; COMMENT: GERD, sm reducible hiatal hernia elicited w/ valsava only OTHER SURGICAL HISTORY Right PROCEDURE: MI STAB PHLEBT VARICOSE VEINS 1 XTR 10-20 STAB INCS; COMMENT: in his 20s HAND SURGERY Right PROCEDURE: HISTORICAL HAND SURGERY; COMMENT: 4th finger COLONOSCOPY 08/2011 PROCEDURE: HISTORICAL COLONOSCOPY; COMMENT: L tubular adenoma/polpectomy, repeat 5 yrs COLONOSCOPY W/ POLYPECTOMY 06/13/2017 PROCEDURE: MI COLSC FLX W/RMVL OF TUMOR POLYP LESION [...] S/p FNA 01/2018 benign A-fib (CMS/HCC V24, CMS/HCC V28) 12/04/2016 DX:A-fib (HCC); COMMENT: Non valvular on coumadin Diverticulosis 01/24/2017 DX:Diverticulosi s; COMMENT: 08/2011 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 L5 radiculopathy. Inconclusive EMG. 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 01/30/2019 DX:Chronic gout due to r enal impairment involving foot without tophus Aortic aneurysm (CMS/HCC V24) 06/26/2017 DX :Aortic aneurysm (HCC); COMMENT: Ascending 4.2 cm, stable on CT chest in 12/2017, TTE 04/2019 stable 4.3 cm Family History Medical History Relation Name Comments Lung cancer Brother 1 Other: Other Daughter Carina Heart attack Father Other: [place], [place] Father Other: No medical issues Mother [...] Care Team (Latest Contact Info) Description 03/06/2025 9:20 AM EDT Anticoagulation - Warfarin Visit [facility] [address] [phone] 03/24/2025 2:15 PM EDT Office Visit General Surgery - [place] [address] [phone] Matt Merida MD [address] [address] Health Maintenance Due Date Last Done Comments [...] Procedure Name Priority Date/Time Associated Diagnosis Comments EXTERNAL ULTRASOUND REPORT 02/16/2025 EXTERNAL ULTRASOUND REPORT 02/16/2025 PROTHROMBIN TIME WITH INR Routine 02/13/2025 7:59 AM EDT Atrial fibrillation, unspecified type (CMS/HCC V24, CMS/HCC V28) PVD (peripheral vascular disease) (CMS/HCC V24) roasterman (current) use of anticoagulants BASIC METABOLIC PANEL Routine 02/13/2025 7:59 AM EDT Hypercalcemia POC PROTIME INR BLOOD Routine 02/06/2025 Atrial fibrillation, unspecified type (CMS/HCC V24, CMS/HCC V28) roasterman (current) use of anticoagulants POC PROTIME INR BLOOD Routine 01/09/2025 Atrial fibrillation, unspecified type (CMS/HCC V24, CMS/HCC V28) roasterman (current) use of anticoagulants VITAMIN D 25 [...] V28) PVD (peripheral vascular disease) (CMS/HCC V24) FPC (current) use of anticoagulants POC PROTIME INR BLOOD Routine 12/19/2024 Atrial fibrillation, unspecified type (CMS/HCC V24, CMS/HCC V28) roasterman (current) use of anticoagulants COLONOSCOPY Routine 02/26/2024 DEPRESSION SCREENING Routine 06/28/2023 FALLS RISK ASSESSMENT Routine 06/28/2023 ABDOMINAL AORTIC ANEURYSM SCRREN Routine 02/20/2017 HEPATITIS C SCREENING Routine 02/08/2017 from Last 3 Months or Most Recently Relevant to Health Maintenance Results * External Ultrasound Report (02/16/2025) Only the most recent of2 resultswithin the time period is included. Anatomical Region Laterality Modality Ultrasound us Provider [facility] US PROCEDURES Final Result * (ABNORMAL) Prothrombin time with INR (02/13/2025 7:59 AM EDT) Only the most recent of2 resultswithin the time period is included. Protime 33.0(H) 10.6 - 13.9 sec LAB COAGULATION METHOD 02/13/2025 10:45 AM EDT [facility] INR 2.7 LAB COAGULATION METHOD 02/13/2025 10:45 AM EDT [facility] Blood Venous blood specimen / Unknown Venipuncture / Unknown 02/13/2025 7:59 AM EDT 02/13/2025 7:59 AM EDT us Richard Chu MD LAB BLOOD ORDERABLES Final Result [facility] [address] [place] [address], [place] [phone] * (ABNORMAL) Basic metabolic panel (02/13/2025 7:59 AM EDT) Sodium 142 133 - 145 mmol/L LAB CHEMISTRY METHOD 02/13/2025 10:53 AM [facility] Potassium 4.4 3.5 - 5.5 mmol/L LAB CHEMISTRY METHOD 02/13/2025 10:53 AM [facility] Chloride 106 96 - 110 mmol/L LAB CHEMISTRY METHOD 02/13/2025 10:53 AM [facility] CO2 30 21 - 32 mmol/L LAB CHEMISTRY METHOD 02/13/2025 10:53 AM [facility] Anion Gap 6 3 - 11 LAB CHEMISTRY METHOD 02/13/2025 10:53 AM [facility] Glucose 105(H) 70 - 100 mg/dL LAB CHEMISTRY METHOD 02/13/2025 10:53 AM [facility] BUN 20 5 - 25 mg/dL LAB CHEMISTRY METHOD 02/13/2025 10:53 AM [facility] Creatinine 1.07 0.70 - 1.30 mg/dL LAB CHEMISTRY METHOD 02/13/2025 10:53 AM [facility] eGFR 73 >=60 mL/min/1. 73m2 LAB CHEMISTRY METHOD 02/13/2025 10:53 AM [facility] Comment:Calculation based on the??Chronic Kidney Disease Epidemiology Collaboration (CKD-EPI) equation refit??without adjustment for race. BUN/Creatinine Ratio 18.7 LAB CHEMISTRY METHOD 02/13/2025 10:53 AM [facility] Calcium 9.8 8.5 - 10.5 mg/dL LAB CHEMISTRY METHOD 02/13/2025 10:53 AM [facility] Blood Venous blood specimen / Unknown Venipuncture / Unknown 02/13/2025 7:59 AM EDT 02/13/2025 7:59 AM EDT us Richard Chu MD LAB BLOOD ORDERABLES Final Result Performing Organization Address City/[facility]/ZIP Co de Phone Number [facility] [address] [place] [address], [place] [phone] * POC Protime INR Blood (02/06/2025) Only the most recent of3 resultswithin the time period is included. Pathologist [facility] Lot Number INR POC 3.1 Prothrombin Time POC Exp Date Blood 02/06/2025 us Richard Chu MD POINT OF CARE TEST ENTER/ED IT ORDERABLES Final Result * Prostate specific antigen screen (01/01/2025 7:53 AM EST) Pathologist [facility] PSA 0.86 0.00 - 4.00 ng/mL LAB CHEMISTRY METHOD 01/01/2025 2:13 PM EST [facility] Blood Venous blood specimen / Unknown Venipuncture / Unknown 01/01/2025 7:53 AM EST 01/01/2025 7:53 AM EST Narrative [facility] - 01/01/2025 2:13 PM EST The Siemens Advia Centaur Chemiluminescent Immunoassay is used. Results obtained with different assay methods or kits cannot be used interchangeably. Results cannot be interpreted as absolute evidence of the presence or absence of malignant disease. us Richard Chu MD LAB BLOOD ORDERABLES Final Result [facility] [address] [place] [address], [place] [phone] * Lipid panel with reflex to direct LDL (01/01/2025 7:53 AM EST) Pathologist [facility] Cholesterol 122 0 - 200 mg/dL LAB CHEMISTRY METHOD 01/01/2025 10:59 AM EST [facility] Triglycerides 140 0 - 150 mg/dL LAB CHEMISTRY METHOD 01/01/2025 10:59 AM [facility] HDL 49 >=40 mg/dL LAB CHEMISTRY METHOD 01/01/2025 10:59 AM [facility] LDL Calculated 45 0 - 100 mg/dL LAB CHEMISTRY METHOD 01/01/2025 10:59 AM [facility] VLDL Cholesterol Carmine 28 mg/dL LAB CHEMISTRY METHOD 01/01/2025 10:59 AM [facility] Non HDL Chol. (LDL+VLDL) 73 <145 mg/dL LAB CHEMISTRY METHOD 01/01/2025 10:59 AM [facility] Chol/HDL Ratio 2.5 0.0 - 4.4 LAB CHEMISTRY METHOD 01/01/2025 10:59 AM [facility] Blood Venous blood specimen / Unknown Venipuncture / Unknown 01/01/2025 7:53 AM EST 01/01/2025 7:53 AM EST us Richard Chu MD LAB BLOOD ORDERABLES Final Result [facility] [address] [place] [address], * (ABNORMAL) CBC auto differential (01/01/2025 7:53 AM EST) WBC 9.5 4.8 - 10.8 K/mcL LAB HEMETOLOGY METHOD 01/01/2025 10:18 AM [facility] RBC 4.50 4.50 - 5.50 M/mcL LAB HEMETOLOGY METHOD 01/01/2025 10:18 AM [facility] Hemoglobin 14.3 13.5 - 17.5 g/dL LAB HEMETOLOGY METHOD 01/01/2025 10:18 AM [facility] Hematocrit 43.7 42.0 - 54.0 % LAB HEMETOLOGY METHOD 01/01/2025 10:18 AM [facility] MCV 97.1 79.0 - 98.0 FL LAB HEMETOLOGY METHOD 01/01/2025 10:18 AM [facility] MCH 31.8 27.0 - 32.0 pcg LAB HEMETOLOGY METHOD 01/01/2025 10:18 AM [facility] MCHC 32.7 32.0 - 37.0 g/dL LAB HEMETOLOGY METHOD 01/01/2025 10:18 AM [facility] RDW 12.9 11.0 - 15.0 % LAB HEMETOLOGY METHOD 01/01/2025 10:18 AM [facility] Platelets 245 130 - 400 K/mcL LAB HEMETOLOGY METHOD 01/01/2025 10:18 AM [facility] MPV 11.6(H) 7.0 - 11.0 FL LAB HEMETOLOGY METHOD 01/01/2025 10:18 AM [facility] NRBC 0.0 <1.0 % LAB HEMETOLOGY METHOD 01/01/2025 10:18 AM [facility] NRBC Absolute 0.00 <0.10 K/mcL LAB HEMETOLOGY METHOD 01/01/2025 10:18 AM [facility] Neutrophils Relative 62.6 % LAB HEMETOLOGY METHOD 01/01/2025 10:18 AM [facility] Lymphocytes Relative 26.1 % LAB HEMETOLOGY METHOD 01/01/2025 10:18 AM [facility] Monocytes Relative 8.1 % LAB HEMETOLOGY METHOD 01/01/2025 10:18 AM [facility] Eosinophils Relative 2.3 % LAB HEMETOLOGY METHOD 01/01/2025 10:18 AM [facility] Basophils Relative 0.6 % LAB HEMETOLOGY METHOD 01/01/2025 10:18 AM EST [facility] Immature Granulocytes Relative 0.3 % LAB HEMETOLOGY METHOD 01/01/2025 10:18 AM [facility] Neutrophils Absolute 5.92 1.50 - 7.00 K/mcL LAB HEMETOLOGY METHOD 01/01/2025 10:18 AM [facility] Lymphocytes Absolute 2.47 1.00 - 5.00 K/mcL LAB HEMETOLOGY METHOD 01/01/2025 10:18 AM EST [facility] Monocytes Absolute 0.77 0.20 - 1.00 K/mcL LAB HEMETOLOGY METHOD 01/01/2025 10:18 AM [facility] Eosinophils Absolute 0.22 0.00 - 0.50 K/mcL LAB HEMETOLOGY METHOD 01/01/2025 10:18 AM [facility] Basophils Absolute 0.06 0.00 - 0.20 K/mcL LAB HEMETOLOGY METHOD 01/01/2025 10:18 AM [facility] Immature Granulocytes Absolute 0.03 0.00 - 0.03 K/mcL LAB HEMETOLOGY METHOD 01/01/2025 10:18 AM [facility] Blood Venous blood specimen / Unknown Venipuncture / Unknown 01/01/2025 7:53 AM EST 01/01/2025 7:53 AM EST us Richard Chu MD LAB BLOOD ORDERABLES Final Result [facility] [address] [place] [address], * Vitamin D 25 hydroxy (01/01/2025 7:53 AM EST) [facility] Vit D, 25-Hydroxy 45.8 30.0 - 80.0 ng/mL LAB CHEMISTRY METHOD 01/02/2025 9:14 AM EST [facility] Blood Venous blood specimen / Unknown Venipuncture / Unknown 01/01/2025 7:53 AM EST 01/01/2025 7:53 AM EST Richard Chu MD LAB BLOOD ORDERABLES Final Result Performing Organization Address City/[facility]/ZIP Co de Phone Number [facility] [address] [place] [address], [place] [phone] * Uric acid (01/01/2025 7:53 AM EST) Uric Acid 5.5 3.7 - 9.2 mg/dL LAB CHEMISTRY METHOD 01/01/2025 10:35 AM EST [facility] Blood Venous blood specimen / Unknown Venipuncture / Unknown 01/01/2025 7:53 AM EST 01/01/2025 7:53 AM EST Richard Chu MD LAB BLOOD ORDERABLES Final Result Performing Organization Address City/[facility]/ZIP Co de Phone Number [facility] [address] [place] [address], [place] [phone] * Parathyroid hormone intact (01/01/2025 7:53 AM EST) PTH 53.2 18.5 - 88.0 pcg/mL LAB CHEMISTRY METHOD 01/02/2025 9:15 AM EST [facility] Blood Venous blood specimen / Unknown Venipuncture / Unknown 01/01/2025 7:53 AM EST 01/01/2025 7:53 AM EST us Richard Chu MD LAB BLOOD ORDERABLES Final Result [facility] [address] [place] [address], [place] [phone] * Hemoglobin A1c (01/01/2025 7:53 AM EST) [facility] Hemoglobin A1C 5.8 <6.5 % LAB CHEMISTRY METHOD 01/01/2025 1:29 PM EST [facility] Mean Bld Glu Estim. 120 mg/dL LAB CHEMISTRY METHOD 01/01/2025 1:29 PM [facility] Blood Venous blood specimen / Unknown Venipuncture / Unknown 01/01/2025 7:53 AM EST 01/01/2025 7:53 AM EST us Richard Chu MD LAB BLOOD ORDERABLES Final Result [facility] [address] [place] [address], [place] [phone] * (ABNORMAL) Comprehensive metabolic panel (01/01/2025 7:53 AM EST) [facility] Sodium 138 133 - 145 mmol/L LAB CHEMISTRY METHOD 01/01/2025 10:59 AM [facility] Potassium 4.4 3.5 - 5.5 mmol/L LAB CHEMISTRY METHOD 01/01/2025 10:59 AM [facility] Chloride 104 96 - 110 mmol/L LAB CHEMISTRY METHOD 01/01/2025 10:59 AM [facility] CO2 30 21 - 32 mmol/L LAB CHEMISTRY METHOD 01/01/2025 10:59 AM [facility] Anion Gap 4 3 - 11 LAB CHEMISTRY METHOD 01/01/2025 10:59 AM [facility] Glucose 113(H) 70 - 100 mg/dL LAB CHEMISTRY METHOD 01/01/2025 10:59 AM [facility] BUN 16 5 - 25 mg/dL LAB CHEMISTRY METHOD 01/01/2025 10:59 AM [facility] Creatinine 1.07 0.70 - 1.30 mg/dL LAB CHEMISTRY METHOD 01/01/2025 10:59 AM [facility] eGFR 73 >=60 mL/min/1. 73m2 LAB CHEMISTRY METHOD 01/01/2025 10:59 AM [facility] Comment:Calculation based on the??Chronic Kidney Disease Epidemiology Collaboration (CKD-EPI) equation refit??without adjustment for race. BUN/Creatinine Ratio 15.0 LAB CHEMISTRY METHOD 01/01/2025 10:59 AM [facility] Calcium 11.0(H) 8.5 - 10.5 mg/dL LAB CHEMISTRY METHOD 01/01/2025 10:59 AM [facility] AST (SGOT) 25 10 - 42 unit/L LAB CHEMISTRY METHOD 01/01/2025 10:59 AM [facility] ALT (SGPT) 46 10 - 60 unit/L LAB CHEMISTRY METHOD 01/01/2025 10:59 AM [facility] Alkaline Phosphatase 77 42 - 121 unit/L LAB CHEMISTRY METHOD 01/01/2025 10:59 AM [facility] Total Protein 7.6 6.0 - 8.0 g/dL LAB CHEMISTRY METHOD 01/01/2025 10:59 AM [facility] Albumin 4.3 3.2 - 5.0 g/dL LAB CHEMISTRY METHOD 01/01/2025 10:59 AM [facility] Total Bilirubin 0.9 0.0 - 1.4 mg/dL LAB CHEMISTRY METHOD 01/01/2025 10:59 AM [facility] Blood Venous blood specimen / Unknown Venipuncture / Unknown 01/01/2025 7:53 AM EST 01/01/2025 7:53 AM EST us Richard Chu MD LAB BLOOD ORDERABLES Final Result [facility] [address] [place] [address], [place] [phone] * (ABNORMAL) TRANSTHORACIC ECHOCARDIOGRAM (TTE) COMPLETE W/ CONTRAST (12/31/2024 8:00 AM EST) Left Atrium Minor [place] 7.2 cm CV PACS Left Atrium Major [place] 6.7 cm CV PACS LA Area Sys [...] S' 12 cm/s CV PACS RA Major [place] 6.4 cm CV PACS RA Major [place] Index 2.5 2.1 - 2.7 cm/m2 CV [...] poor endocardial visualization and patient body habitus. us Bridger Fernandes MD CV ECHO PROCEDURES Final Result * Colonoscopy (02/26/2024) Colonoscopy No interpretation , abstracted Anatomical Region Laterality Modality Other Historical Provider HEALTH MAINTENANCE Final Result * Falls Risk Assessment (06/28/2023) Pathologist [facility] Falls Risk Assessment Abstracted Historical Provider HEALTH MAINTENANCE Final Result * Depression Screening (06/28/2023) Depression Screening Abstracted Historical Provider HEALTH MAINTENANCE Final Result * Abdominal Aortic Aneurysm Screen (02/20/2017) Pathologist [facility] Abdominal Aortic Aneurysm (AAA) Screening Abstracted Anatomical Region Laterality Modality Other Historical Provider HEALTH MAINTENANCE Final Result * Hepatitis C Screening (02/08/2017) Pathologist [facility] Hepatitis C Screening Abstracted Historical Provider HEALTH MAINTENANCE Final Result from Last 3 Months or Most Recently Relevant to Health Maintenance Insurance MEDICARE [facility] Care Teams Underwater Welder Relationship Specialty Start Date End Date Richard Chu MD [address] [place] [address] PCP - General Internal Medicine 04/11/22
--- OUTSIDE RECORDS SUMMARY | 2025-02-27 14:15 | XMS_ITS | Encounter Summary ---
Author Organization [facility] Address [address] [place] [address] Care Team Providers Care Systems Lead Name Role Phone Richard Chu MD Primary Care Provider [phone] Encounter Details Date Type Department Care Team (Latest Contact Info) Description 02/06/2025 9:00 AM EDT Anticoagulation - Warfarin Visit Coumadin [address] [phone] Atrial fibrillation, unspecified type (CMS/HCC V24, CMS/HCC V28) (Primary Dx); half-way (current) use of anticoagulants Social History Tobacco Use Types Packs/Day Years Used Date Smoking Tobacco: Former Cigarettes Q uit: 11/05/2005 Smokeless Tobacco: Never Alcohol Use Standard Drinks/Week Comments Yes 0 (1 standard drink = 0.6 oz pur e alcohol) Sex and Gender Information Value Date Recorded Sex Assigned at Not on file Legal Sex Male 2:54 AM EST Gender Identity Not on file Sexual Orientation Not on file documented as of this encounter Plan of Treatment Upcoming Encounters Date Type Department Care Team (Latest Contact Info) Description 03/06/2025 9:20 AM EDT Anticoagulation - Warfarin Visit Coumadin [address] [phone] 03/24/2025 2:15 PM EDT Office Visit General Surgery - [place] [address] [phone] Matt Merida MD [address] [phone] documented as of this encounter Procedures Procedure Name Priority Date/Time Associated Diagnosis Comments POC PROTIME INR BLOOD Routine 02/06/2025 Atrial fibrillation, unspecified type (CMS/HCC V24, CMS/HCC V28) half-way (current) use of anticoagulants documented in this encounter Results * POC Protime INR Blood (02/06/2025) Lot Number INR POC 3.1 Prothrombin Time POC Exp Date Blood 02/06/2025 Richard Chu MD POINT OF CARE TEST ENTER/ED IT ORDERABLES Final Result documented in this encounter Visit Diagnoses Diagnosis Atrial fibrillation, unspecified type (CMS/HCC V24, CMS/HCC V28)- Primary half-way (current) use of anticoagulants Long-term (current) use of anticoagulants documented in this encounter Care Teams Systems Lead Relationship Specialty Start Date End Date Richard Chu MD [address] [place] [address] PCP - General Internal Medicine 04/11/22 documented as of this encounter
== END 2025-02-27 15:10 | disposition home or self-care (01) ==
LOC: HO.HUSH 13:33
PROVIDERS: PCP Internal Medicine; Visit Provider Urology
DX: N20.0 Calculus of kidney (principal)
CPT/HCPCS: 99214; G2211

== ENCOUNTER → 2025-02-27 13:33 | Outpatient (BNVA) | payer MEDICARE, OTHER, SELFPAY | PROVIDERS: PCP Internal Medicine; Visit Provider Urology | DX: Z13.89 Encounter for screening for other disorder (principal) ==